=== PATIENT | female | born 1970 | race Caucasian/White ===

== ENCOUNTER 2019-07-19 21:08 | Emergency (ER) | payer BC, OTHER ==
[~2019-07-19] VITALS: Ht 170.2 cm; Wt 73.9 kg
[2019-07-19 21:13] VITALS: BP 133/91
--- NOTE | 2019-07-19 21:20 | NUR ---
49F C/O DIZZINESS, PALPITATIONS X 1 DAY --WORSENING. NO SYNCOPE. STATES UNABLE TO WALK DUE TO DIZZINESS. HR NOW 88 HX- HTN, ANXIETY RX- CYMBALTA, TRAZADONE, ANTIHYPERTENSIVE PATIENT PRESENTS TO ED WITH DIZZINESS AND PALPITATIONS. AAOX4 PATIENT STATES PAIN OF 0/10 AT THIS TIME; VSS; PATIENT POSITIONED FOR COMFORT; HOB ELEVATED; BEDRAILS UP X2; BED DOWN. ER MD MADE AWARE OF PT STATUS.
[2019-07-19] MEDS ORDERED: NACL 0.9% 1,000 ML IV ONE (21:40)
[2019-07-19 22:02] LABS: BASOPHILS # (AUTO) 0.1 K/uL (0.00-0.22); BASOPHILS % (AUTO) 1.3 % (0.0-2.0); EOSINOPHILS # (AUTO) 0.1 K/uL (0-0.4); EOSINOPHILS % (AUTO) 1.6 % (0.0-4.0); HEMATOCRIT 38.7 % (36-48); HEMOGLOBIN 13.3 g/dL (12.0-16.0); LYMPHOCYTES # (AUTO) 2.8 K/uL (2.5-16.5); LYMPHOCYTES % (AUTO) 34.6 % (20.5-51.1); MEAN CORPUSCULAR HEMOGLOBIN 30 pg (27-31); MEAN CORPUSCULAR HGB CONC 34 g/dL (33-37); MEAN CORPUSCULAR VOLUME 86.1 fL (80-94); MONOCYTES # (AUTO) 0.8 K/uL (0.8-1.0); MONOCYTES % (AUTO) 10.3 % (1.7-9.3); NEUTROPHILS # (AUTO) 4.3 K/uL (1.8-7.7); NEUTROPHILS % (AUTO) 52.2 % (42.2-75.2); PLATELET COUNT (AUTO) 342 K/uL (140-450); RED BLOOD CELL COUNT(AUTO) 4.49 MIL/uL (4.20-5.40); RED CELL DISTRIBUTION WIDTH 12.6 % (11.6-13.7); WHITE BLOOD COUNT (AUTO) 8.2 K/uL (4.8-10.8)
--- NOTE | 2019-07-19 22:12 | NUR ---
Dr. Banks examing patient.
[2019-07-19 22:15] LABS: ANION GAP 16.9 (8-16); CARBON DIOXIDE 22.8 mmol/L (21-32); CREATININE 1.1 mg/dL (0.6-1.3); POTASSIUM 3.7 mmol/L (3.5-5.1)
[2019-07-19] MEDS ORDERED: LORazepam 2 MG/ML VIAL IVP ONE (22:20)
[2019-07-19 22:28] LABS: ALBUMIN 4.4 g/dL (3.4-5.0); FREE T4 (FREE THYROXINE) 1.13 ng/dL (0.76-1.46); MAGNESIUM 1.7 mg/dL (1.8-2.4); THYROID STIMULATING HORMONE 2.33 uIU/mL (0.34-3.74); TOTAL BILIRUBIN 0.6 mg/dL (0.0-1.0)
--- NOTE | 2019-07-19 22:30 | NUR ---
PT WENT TO RESTROOM, ASSISTED, URINALYSIS SENT TO LAB. PT BACK TO BED COMFORTABLY. NO SIGNS OF DISTRESS. PT STATED SHE IS FEELING BETTER. DIZZINESS STARTING TO GO AWAY.
[2019-07-19 22:33] LABS: PHOSPHORUS 1.1 mg/dL (2.5-4.9)
[2019-07-19 22:37] LABS: CREATINE KINASE MB 1.2 ng/mL (0-3.6)
--- NOTE | 2019-07-19 22:45 | NUR ---
PT STATED SHE SAW KITTEN ON THE FLOOR. I TOLD PATIENT I DON'T SEE KITTEN. AT BEDSIDE AND REASSURE TAHT THERE IS NO KITTEN. DR. PERRIN NOTIFIED. WILL CONTINUE TO MONITOR.
--- NOTE | 2019-07-19 23:10 | NUR ---
PT TAKEN TO CT
--- NOTE | 2019-07-19 23:26 | NUR ---
PT RETURN FROM CT
[2019-07-20 01:19] LABS: BARBITURATE, URINE NEG. ng/ml (NEG <=200); BENZODIAZEPINE, URINE NEG. ng/mL (NEG <=200); CANNABINOID, URINE NEG. ng/mL (NEG <=50); COCAINE, URINE NEG. ng/mL (NEG <=300); OPIATE, URINE NEG. ng/mL (NEG <=2000); PHENCYCLIDINE SCREEN,URINE NEG. ng/mL (NEG <=25)
[2019-07-20 01:36] VITALS: BP 110/58
--- NOTE | 2019-07-20 01:36 | NUR ---
DISCHARGE PAPERS GIVEN TO PT. PT STATES RELIEFE. NO ANXIETY. ALERT TO NAME, PLACE, TIME AND EVENT. VSS. RX OF ATIVAN GIVEN. SIDE EFFECTS EXPLAINED. PROVIDED WITH COPIES OF LABS AND IMAGING. INSTRUCTED TO F/U WITH PCP AND WHEN TO RETURN TO ER. PT VERBALLIZED UNDERSTANDING OF DC INSTRUCTIONS. ALL QUESTIONS ANSWERED.
== END 2019-07-20 01:36 | disposition home or self-care (01) ==
LOC: MED 21:08
DX: R51 Headache (principal); R25.1 Tremor, unspecified; F41.9 Anxiety disorder, unspecified; I10 Essential (primary) hypertension; Z91.013 Allergy to seafood
CPT/HCPCS: 36415; 70450; 71045; 80053; 80305; 82550; 82553; 83690; 83735; 84100; 84439; 84443; 84484; 85025; 93005; 96361; 96374; 99284; J2060; Q0092; J7030